=== PATIENT | female | born 1960 | race Caucasian/White ===

== ENCOUNTER 2024-08-07 12:29 | Inpatient (IN) | payer MEDICARE ==
[~2024-08-07] VITALS: Ht 152.4 cm; Wt 71.0 kg
[~2024-08-07 12:29] MED LIST: DOXYCYCLINE HY100 M3 PO; ELIQUIS5 M1 PO; LOTEMAX SM5 GM OS; PREDNISONE10 MG PO; PROLENSA3 ML OS
[2024-08-07 12:31] VITALS: BP 104/82
[2024-08-07] MEDS ORDERED: SODIUM CHLORIDE 0.9% 1,000 ML IV ONE (12:35)
[2024-08-07 13:00] LABS: BILIRUBIN Negative (Negative); BLOOD Negative (Negative); CLARITY Clear (Clear); COLOR Yellow (Yellow); GLUCOSE Negative (Negative); KETONE Negative (Negative); LEUKO ESTERASE Negative (Negative); NITRITE Negative (Negative); SPECIFIC GRAVITY 1.015 (1.001-1.030); UROBILINOGEN 0.2 E.U./dl (0.0-1.0)
[2024-08-07 13:08] LABS: BASO % 0.1 % (0.0-1.0); HEMATOCRIT 27.4 % (37.0-47.0); MEAN CELL VOLUME 103.8 fl (81.0-99.0); MEAN CORPUSCULAR HGB CONC 31.8 g/dl (33.0-37.0); MEAN PLATELET VOLUME 10.4 fl (9.6-12.3); MONO # 0.9 10*3/uL (0.1-1.0); NEUT # 7.8 10*3/uL (2.3-7.9); NEUT % 81.8 % (47.0-73.0); PLATELET COUNT AUTOMATED 377 10*3/uL (130-400); RED BLOOD COUNT 2.64 10*6/uL (4.10-5.10); RED CELL DISTRI WIDTH 18.3 % (0-14.5); WHITE BLOOD COUNT 9.5 10*3/uL (4.8-10.8)
[2024-08-07 13:31] LABS: POTASSIUM 3.7 mmol/L (3.4-5.1)
[2024-08-07 13:32] LABS: BACTERIA TRACE; MUCOUS TRACE; YEAST 1+
[2024-08-07] MEDS ORDERED: Ondansetron Hydrochloride 4 MG/2 ML VIAL IV PRN (14:40)
[2024-08-07] MEDS ORDERED: ACETAMINOPHEN 325 MG TAB PO PRN (14:40)
[2024-08-07] MEDS ORDERED: Magnesium Hydroxide 30 ML UDC PO PRN (14:40)
[2024-08-07] MEDS ORDERED: BISACODYL 5 MG TAB PO PRN (14:40)
[2024-08-07 16:15] VITALS: BP 106/80
[2024-08-07 20:20] VITALS: BP 108/80
[2024-08-07] MEDS ORDERED: APIXABAN 5 MG TAB PO SCH (22:00)
[2024-08-07] MEDS ORDERED: LOTEMAX OPH SCH (22:00)
[2024-08-07] MEDS ORDERED: LORazepam 2 MG/ML VIAL IV ONE (23:15)
[2024-08-08 01:08] VITALS: BP 119/77
[2024-08-08 04:34] VITALS: BP 130/78
[2024-08-08 06:32] LABS: POTASSIUM 3.9 mmol/L (3.4-5.1); TOTAL PROTEIN 4.6 gm/dL (6.0-8.0)
[2024-08-08 06:33] LABS: BASO % 0.1 % (0.0-1.0); EOS % 0.1 % (1.0-4.0); HEMATOCRIT 26.7 % (37.0-47.0); MEAN CELL VOLUME 106.4 fl (81.0-99.0); MEAN CORPUSCULAR HGB 33.5 pg (27.0-31.0); MEAN CORPUSCULAR HGB CONC 31.5 g/dl (33.0-37.0); MEAN PLATELET VOLUME 11.3 fl (9.6-12.3); MONO # 0.6 10*3/uL (0.1-1.0); NEUT # 7.6 10*3/uL (2.3-7.9); NEUT % 83.2 % (47.0-73.0); PLATELET COUNT AUTOMATED 378 10*3/uL (130-400); RED BLOOD COUNT 2.51 10*6/uL (4.10-5.10); RED CELL DISTRI WIDTH 18.1 % (0-14.5); WHITE BLOOD COUNT 9.1 10*3/uL (4.8-10.8)
[2024-08-08 09:16] VITALS: BP 124/62
[2024-08-08 10:00] VITALS: BP 130/99
[2024-08-08] MEDS ORDERED: BROMFENAC OPH SCH (10:00)
[2024-08-08 16:00] VITALS: BP 128/98
[2024-08-08] MEDS ORDERED: LORazepam 0.5 MG TAB PO PRN (17:10)
[2024-08-08 20:00] VITALS: BP 126/95
[2024-08-09] VITALS: BP 152/90
[2024-08-09 00:33] LABS: POTASSIUM 3.9 mmol/L (3.4-5.1)
[2024-08-09] MEDS ORDERED: POTASSIUM CHLORIDE 20 MEQ TAB PO ONE (00:45)
[2024-08-09] MEDS ORDERED: MAGNESIUM SULFATE 50 ML IV ONE (00:45)
[2024-08-09 08:00] VITALS: BP 100/65
[2024-08-09] MEDS ORDERED: Metoprolol Tartrate 25 MG TAB PO SCH (10:00)
[2024-08-09 12:00] VITALS: BP 114/92
[2024-08-09 16:00] VITALS: BP 134/61
[2024-08-09 20:00] VITALS: BP 122/64
[2024-08-10] VITALS: BP 124/65
[2024-08-10 08:00] VITALS: BP 126/95
[2024-08-10 12:00] VITALS: BP 126/64
[2024-08-10] MEDS ORDERED: LOPRESSOR25 MG PO (12:29)
== END 2024-08-10 15:48 | DRG 682 ==
LOC: ED 12:29 → EDHOLD 14:05 → 4E 14:05 → EDHOLD 08-08 01:23 → 4E 08-08 08:49
PROVIDERS: Emergency Medicine; Registered Nurse; Student in an Organized Health Care Education/Training Program; ADMIT Internal Medicine; ATTEND Internal Medicine
DX: N17.0 Acute kidney failure with tubular necrosis (principal); E43 Unspecified severe protein-calorie malnutrition; I21.A1 Myocardial infarction type 2; G93.41 Metabolic encephalopathy; I48.21 Permanent atrial fibrillation; E86.0 Dehydration; R41.0 Disorientation, unspecified; N18.32 Chronic kidney disease, stage 3b; E83.42 Hypomagnesemia; J44.9 Chronic obstructive pulmonary disease, unspecified; Z86.718 Personal history of other venous thrombosis and embolism; Z79.899 Other long term (current) drug therapy

== ENCOUNTER 2024-08-10 15:48 | Inpatient (IN) | payer MEDICARE ==
[~2024-08-10] VITALS: Ht 4864 cm; Wt 72.3 kg
[~2024-08-10 15:48] MED LIST changes: +LOPRESSOR25 MG PO
[2024-08-10] MEDS ORDERED: LORazepam 1 MG TAB PO PRN (16:35)
[2024-08-10] MEDS ORDERED: LORazepam 2 MG/ML VIAL IM PRN (16:35)
[2024-08-10] MEDS ORDERED: ACETAMINOPHEN 325 MG TAB PO PRN (16:40)
[2024-08-10] MEDS ORDERED: Magnesium Hydroxide 30 ML UDC PO PRN (16:40)
[2024-08-10] MEDS ORDERED: Water, Sterile 10 ML VIAL IM PRN (16:40)
[2024-08-10] MEDS ORDERED: MG-AL HYDROXIDE/SIMETICONE 30 ML UDC PO PRN (16:40)
[2024-08-10] MEDS ORDERED: Ziprasidone Mesylate 20 MG VIAL IM PRN (16:40)
[2024-08-10 17:11] VITALS: BP 109/64
[2024-08-10 20:00] VITALS: BP 113/60
[2024-08-10] MEDS ORDERED: RISPERIDONE 0.5 MG TAB PO SCH (21:00)
[2024-08-10] MEDS ORDERED: Menthol/Zinc Oxide 4 GM THIN T SCH (21:00)
[2024-08-11 07:01] VITALS: BP 105/71
[2024-08-11] MEDS ORDERED: Nicotine 21 MG PATCH T SCH (13:40)
[2024-08-11 20:00] VITALS: BP 104/62
[2024-08-11] MEDS ORDERED: Metoprolol Tartrate 25 MG TAB PO SCH (21:00)
[2024-08-11] MEDS ORDERED: APIXABAN 5 MG TAB PO SCH (21:00)
[2024-08-12 08:00] VITALS: BP 102/58
[2024-08-12] MEDS ORDERED: Rivastigmine Tartrate 4.6 MG/24 HR PATCH T SCH (09:00)
[2024-08-12] MEDS ORDERED: Thiamine 100 MG TAB PO SCH (09:00)
[2024-08-12 09:01] LABS: FREE T4 1.22 ng/dl (0.89-1.76)
[2024-08-12] MEDS ORDERED: PROLENSA OS SCH (10:00)
[2024-08-12 20:00] VITALS: BP 95/52
[2024-08-12] MEDS ORDERED: Memantine Hydrochloride 5 MG TAB PO SCH (21:00)
[2024-08-13 07:46] VITALS: BP 144/92
[2024-08-13 08:52] VITALS: BP 144/92
[2024-08-13] MEDS ORDERED: Rivastigmine Tartrate 9.5 MG/24 HR PATCH T SCH (09:00)
[2024-08-13] MEDS ORDERED: Memantine Hydrochloride 5 MG TAB PO SCH (09:00)
[2024-08-13 10:03] LABS: BASO % 0.2 % (0.0-1.0); EOS % 0.3 % (1.0-4.0); HEMATOCRIT 28.4 % (37.0-47.0); MEAN CELL VOLUME 106.4 fl (81.0-99.0); MEAN PLATELET VOLUME 11.8 fl (9.6-12.3); MONO # 0.5 10*3/uL (0.1-1.0); MONO % 4.3 % (3.0-9.0); NEUT # 10.2 10*3/uL (2.3-7.9); NEUT % 88.4 % (47.0-73.0); PLATELET COUNT AUTOMATED 369 10*3/uL (130-400); RED BLOOD COUNT 2.67 10*6/uL (4.10-5.10); RED CELL DISTRI WIDTH 17.4 % (0-14.5); WHITE BLOOD COUNT 11.5 10*3/uL (4.8-10.8)
[2024-08-13 10:31] LABS: POTASSIUM 3.9 mmol/L (3.4-5.1); TOTAL PROTEIN 5.1 gm/dL (6.0-8.0)
[2024-08-13] MEDS ORDERED: FUROSEMIDE 40 MG TAB PO SCH (15:45)
[2024-08-13 20:00] VITALS: BP 148/67
[2024-08-14 08:00] VITALS: BP 119/81
[2024-08-14] MEDS ORDERED: Z-BEC PO SCH (10:00)
[2024-08-14 13:36] LABS: BASO % 0.1 % (0.0-1.0); EOS % 0.3 % (1.0-4.0); HEMATOCRIT 27.6 % (37.0-47.0); MEAN CELL VOLUME 105.3 fl (81.0-99.0); MEAN CORPUSCULAR HGB 33.2 pg (27.0-31.0); MEAN CORPUSCULAR HGB CONC 31.5 g/dl (33.0-37.0); MEAN PLATELET VOLUME 11.4 fl (9.6-12.3); MONO # 0.6 10*3/uL (0.1-1.0); NEUT # 9.9 10*3/uL (2.3-7.9); NEUT % 88.2 % (47.0-73.0); PLATELET COUNT AUTOMATED 366 10*3/uL (130-400); RED BLOOD COUNT 2.62 10*6/uL (4.10-5.10); RED CELL DISTRI WIDTH 17.2 % (0-14.5); WHITE BLOOD COUNT 11.2 10*3/uL (4.8-10.8)
[2024-08-14 13:56] LABS: POTASSIUM 3.6 mmol/L (3.4-5.1)
[2024-08-14 20:00] VITALS: BP 102/89
[2024-08-14] MEDS ORDERED: RISPERIDONE 1 MG TAB PO SCH (21:00)
[2024-08-14] MEDS ORDERED: FLUCONAZOLE 150 MG TAB PO SCH (22:20)
[2024-08-15 08:45] VITALS: BP 82/62
[2024-08-15] MEDS ORDERED: RISPERIDONE 0.5 MG TAB PO SCH (09:00)
[2024-08-15] MEDS ORDERED: Capsaicin 0.075% Cream 57 GM TUBE T SCH (13:00)
[2024-08-15 19:51] VITALS: BP 143/79
[2024-08-15] MEDS ORDERED: Memantine Hydrochloride 10 MG TAB PO SCH (21:00)
[2024-08-16 07:54] VITALS: BP 80/45
[2024-08-16] MEDS ORDERED: FUROSEMIDE 40 MG TAB PO SCH (09:00)
[2024-08-16] MEDS ORDERED: RIVASTIGMINE 13.3 MG/24 HR TDM T SCH (09:00)
[2024-08-16] MEDS ORDERED: SODIUM CHLORIDE 0.9% 500 ML IV SCH (09:05)
[2024-08-16 20:00] VITALS: BP 96/50
[2024-08-17 09:02] VITALS: BP 83/54
[2024-08-17] MEDS ORDERED: MEMANTINE HCL10 MG PO (09:38)
[2024-08-17] MEDS ORDERED: RIVASTIGMINE1 EAC2 T (09:38)
[2024-08-17] MEDS ORDERED: RISPERDAL1 M1 PO (09:38)
[2024-08-17] MEDS ORDERED: DIALYVITE WITH1 EACH PO (09:38)
[2024-08-17] MEDS ORDERED: RISPERIDONE0.5 MG PO (09:38)
[2024-08-17] MEDS ORDERED: ARTHRITIS PAIN57 GM T (09:38)
[2024-08-17] MEDS ORDERED: NATURE'S BLEND100 M2 PO (09:38)
[2024-08-17] MEDS ORDERED: METOPROLOL SUCC25 M2 PO (09:57)
[2024-08-17 11:02] VITALS: BP 102/65
== END 2024-08-17 15:56 | DRG 885 ==
LOC: 3N 15:48
PROVIDERS: Nurse Practitioner; Student in an Organized Health Care Education/Training Program; ADMIT Psychiatry & Neurology Psychiatry; ATTEND Psychiatry & Neurology Psychiatry
PROC: GZHZZZZ Group Psychotherapy (ICD-10-PCS; principal; 2024-08-11)
PROC: GZ51ZZZ Individual Psychotherapy, Behavioral (ICD-10-PCS; 2024-08-11)
DX: F23 Brief psychotic disorder (principal); N18.32 Chronic kidney disease, stage 3b; J44.9 Chronic obstructive pulmonary disease, unspecified; I48.0 Paroxysmal atrial fibrillation; D53.9 Nutritional anemia, unspecified; R29.6 Repeated falls; F17.200 Nicotine dependence, unspecified, uncomplicated; Z78.9 Other specified health status